=== PATIENT | male | born 1930 | race Caucasian/White ===

== ENCOUNTER 2017-01-20 13:17 | Emergency (ER) | payer MEDICARE, BC ==
[2017-01-20 14:49] VITALS: BP 108/55; PULSE 50; RESP 16
--- NOTE | 2017-01-20 15:23 | ED ---
Skin/Abscess/FB HPI - General Chief complaint: Skin/Abscess/Foreign Body Stated complaint: Rash/Legs Time Seen by Provider: 01/20/17 13:37 Source: patient, family Mode of arrival: ambulatory Limitations: no limitations - History of Present Illness Initial comments: 86 years old male presents with multiple skin rashes, he has about 30 different areas on his legs and to her abdomen AND both arms. He is concerned about 6 [place] lives [place] the [place] denies any direct contact with the dogs he denies any bed bugs. He has a multiple scattered rashes on his skin did just recently showed up over the last 2 days, that H. No fever no chills no records no SYMPTOMS OF SEPSIS - Related Data Previous Rx's Medication Instructions Recorded Amoxicillin 500 mg PO Q8H #30 capsule 01/20/17 Allergies Allergy/AdvReac Type Severity Reaction Status Date / Time No Known Allergies Allergy Verified 01/20/17 14:09 Review of Systems ROS Statement: Those systems with pertinent positive or pertinent negative responses have been documented in the HPI. ROS Other: All systems not noted in ROS Statement are negative. Past Medical History Past Medical History: Dementia, GERD/Reflux Additional Past Medical History / Comment(s): Hx of HTN, no longer on meds. History of Any Multi-Drug Resistant Organisms: C-DIFF Date of last positivie culture/infection: 2009? MDRO Source:: Stool Past Surgical History: Hernia Repair, Orthopedic Surgery Additional Past Surgical History / Comment(s): 03/12/16 LEFT HEMIARTHROPLASTY FROM FX. Partial tip of ring finger cut off, left knee arthoscopy, right shoulder surgery Past Anesthesia/Blood Transfusion Reactions: No Reported Reaction Past Psychological History: No Psychological Hx Reported Smoking Status: Former smoker Past Alcohol Use History: None Reported Past Drug Use History: None Reported - Past Family History Father Family Medical History: No Reported History Brother(s) Family Medical History: Cancer Additional Family Medical History / Comment(s): Prostate CA. Daughter(s) Family Medical History: Cancer Additional Family Medical History / Comment(s): Ovarian CA. General Exam - General Exam Comments Initial Comments: General: The patient is awake and alert, in no distress, and does not appear acutely ill. Skin: Skin is warm and dry , noticed some about 40 different spots on his legs , abdomen, both arms and some on the back, they vary from 2 mm to 7 mm in size raised, noticed some erythema is no tenderness. I did not notice any of the typical lymes disease lesions Eye: Pupils are equal, round and reactive to light, extra-ocular movements are intact; there is normal conjunctiva bilaterally. Ears, nose, mouth and throat: There are moist mucous membranes and no oral lesions. Neck: The neck is supple, there is no tenderness or JVD. Cardiovascular: There is a regular rate and rhythm. No murmur, rub or gallop is appreciated. Respiratory: To auscultation bilateral, no wheezing no rhonchi no distress respiratory [place] noticed Gastrointestinal: Soft, non-distended, non-tender abdomen without masses or organomegaly noted. There is no rebound or guarding present. Bowel sounds are unremarkable. Back: There is no tenderness to palpation in the midline. There is no obvious deformity. Musculoskeletal: Normal ROM, no tenderness, There is no pedal edema. There is no calf tenderness or swelling. No cords were appreciated. Neurological: CN II-XII intact, Cranial nerves III through XII are intact. There are no obvious motor or sensory deficits. Coordination appears grossly intact. Speech is normal. Psychiatric: Cooperative, appropriate mood & affect, normal judgment. Limitations: no limitations Course Vital Signs 01/20/17 01/20/17 13:28 14:48 Temperature 98.8 F Pulse Rate 58 L 50 L Respiratory 20 16 Rate Blood Pressure 113/65 108/55 O2 Sat by Pulse 98 95 Oximetry - Reevaluation(s) Reevaluation #1: 01/20/17 15:21 Discussion with the patient admitted to the [facility] she'll be treated with the amoxicillin 400 mg 3 times a day for next 10 days patient will follow-up with the family doctor for Lyme status so is positive he woke on amoxicillin for 10 days pain and if Lyme's test is negative then he will discontinue his amoxicillin Disposition Clinical Impression: Dermatitis, Acute Lyme disease Disposition: HOME SELF-CARE Prescriptions: Amoxicillin 500 mg PO Q8H #30 capsule Referrals: Francis Negrete Jr, [Primary Care Provider] - 1-2 days
[2017-01-20 15:30] VITALS: TEMP 97.9
[2017-01-22 13:04] LABS: Lyme IgG/IgM 0.1 Index; Lyme IgG/IgM Interp NEGATIVE (NEGATIVE)
== END 2017-01-20 15:29 | disposition home or self-care (01) ==
LOC: EC 13:17
DX: A69.20 Lyme disease, unspecified (principal); L30.9 Dermatitis, unspecified; Z87.891 Personal history of nicotine dependence
CPT/HCPCS: 36415; 86618; 99283

== ENCOUNTER 2018-01-25 12:11 | Emergency (ER) | payer MEDICARE, BC ==
[2018-01-25] MEDS ORDERED: DIPH,PERTUS(ACELL)TETVAC-LF 0.5 ML VIAL IM ONE (12:25)
[2018-01-25] MEDS ORDERED: ceFAZolin IN SWFI 2 GM/20 ML SYRINGE IVP ONE (12:25)
[2018-01-25 12:26] VITALS: RESP 18
--- NOTE | 2018-01-25 12:26 | ED ---
General Adult HPI <Mikaela Veraily - Last Filed: 01/25/18 14:02> - General Source: patient, EMS, RN notes reviewed Mode of arrival: EMS Limitations: no limitations <Jorje Vallecillo - Last Filed: 01/25/18 14:32> - General Chief complaint: Extremity Injury, Lower Stated complaint: toe injury Time Seen by Provider: 01/25/18 12:15 - History of Present Illness Initial comments: This is an 87-year-old male who presents emergency Department complaining of tripping over his toe. Patient was needing some help of EMS was called when they arrived they noticed that toe was lacerated and the joint from the proximal phalangeal was sticking out of the laceration completely disarticulated with the distal phalanges. Patient denies any foot pain ankle pain and knee pain. Patient denies any other symptoms at this time. Patient is somewhat demented but there is no family at this time. According to EMS they stated that the family was unaware of the toe injury when they arrived and were willing to keep him at home until they found that out. (Jorje Vallecillo) - Related Data Home Medications Medication Instructions Recorded Confirmed Aspirin EC [Ecotrin Low Dose] 81 mg PO DAILY 01/25/18 01/25/18 Previous Rx's Medication Instructions Recorded Cephalexin [Keflex] 500 mg PO Q6HR #28 cap 01/25/18 Ibuprofen [Motrin] 600 mg PO Q6HR PRN #20 tab 01/25/18 Allergies Allergy/AdvReac Type Severity Reaction Status Date / Time No Known Allergies Allergy Verified 01/25/18 13:07 Review of Systems ROS Other: All systems not noted in ROS Statement are negative. <Citlaly Vera - Last Filed: 01/25/18 14:02> ROS Other: All systems not noted in ROS Statement are negative. <Jorje Vallecillo - Last Filed: 01/25/18 14:32> ROS Statement: Those systems with pertinent positive or pertinent negative responses have been documented in the HPI. Past Medical History Past Medical History: Dementia, GERD/Reflux Additional Past Medical History / Comment(s): Hx of HTN, no longer on meds. History of Any Multi-Drug Resistant Organisms: C-DIFF Date of last positivie culture/infection: 2009 MDRO Source:: Stool Past Surgical History: Hernia Repair, Orthopedic Surgery Additional Past Surgical History / Comment(s): 03/12/16 LEFT HEMIARTHROPLASTY FROM FX. Partial tip of ring finger cut off, left knee arthoscopy, right shoulder surgery Past Anesthesia/Blood Transfusion Reactions: No Reported Reaction Past Psychological History: No Psychological Hx Reported Smoking Status: Former smoker Past Alcohol Use History: None Reported Past Drug Use History: None Reported - Past Family History Father Family Medical History: No Reported History Brother(s) Family Medical History: Cancer Additional Family Medical History / Comment(s): Prostate CA. Daughter(s) Family Medical History: Cancer Additional Family Medical History / Comment(s): Ovarian CA. <Jorje Vallecillo - Last Filed: 01/25/18 14:32> General Exam <Citlaly Vera - Last Filed: 01/25/18 14:02> Limitations: no limitations <Jorje Vallecillo - Last Filed: 01/25/18 14:32> - General Exam Comments Initial Comments: GENERAL Patient is well-developed and well-nourished. Patient is in mild distress. EYES Patient's pupils are equal and round. Extraocular motion is intact SKIN Unremarkable NEURO The patient is alert and oriented 3 PYSCH Patient has normal interpersonal interactions. MUSCULOSKELETAL Second toe is disarticulated at the PIP joint on the right foot and it is also open (Jorje Vallecillo) Vital Signs 01/25/18 01/25/18 12:14 14:15 Temperature 97.4 F L 97.8 F Pulse Rate 47 L 58 L Respiratory 18 18 Rate Blood Pressure 155/74 155/77 O2 Sat by Pulse 96 97 Oximetry Procedures - Laceration Laceration #1 Indication: laceration Site: foot (2nd toe) Size (cm): 2 Description: irregular Depth: simple, single layer Anesthetic Used: lidocaine 1% Anesthesia Technique: nerve block Amount (mls): 4 Pre-repair: wound explored, irrigated extensively Type of Sutures: nylon Size of Sutures: 5-0 Number of Sutures: 5 Technique: simple, interrupted Patient Tolerated Procedure: well, no complications - Orthopedic Fracture Reduction Fracture #1 Side: right Fracture Reduction Location: toe (2nd toe) Analgesia: digital block Technique: direct manipulation Post Reduction X-rays Demonstrate: anatomical reduction Post-Reduction Neuro Exam: intact Post-Reduction Vascular Exam: intact Patient Tolerated Procedure: well <Citlaly Vera - Last Filed: 01/25/18 14:02> Medical Decision Making - Radiology Data Radiology results: report reviewed, image reviewed <VallecilloJorje - Last Filed: 01/25/18 14:32> Disposition <JodyCitlaly - Last Filed: 01/25/18 14:02> Is patient prescribed a controlled substance at d/c from ED?: No Time of Disposition: 14:30 <Jorje Vallecillo - Last Filed: 01/25/18 14:32> Clinical Impression: Dislocation of second toe, right, open, Laceration of toe Disposition: HOME SELF-CARE Instructions: Laceration (ED) Prescriptions: Cephalexin [Keflex] 500 mg PO Q6HR #28 cap Ibuprofen [Motrin] 600 mg PO Q6HR PRN #20 tab PRN Reason: For pain Referrals: Francis Negrete Jr, DO [Primary Care Provider] - 1-2 days
--- NOTE | 2018-01-25 12:51 | XR ---
Right toes HISTORY: Trauma and pain 3 views of the right toes are submitted. There is a posterior dislocation present at the proximal interphalangeal joint of the second digit of the right foot with bayonet apposition. Proximal intra-articular fracture is present at the proximal phalanx of the first digit of the right foot. Minimal displacement. There is associated soft tissue swelling present. Bone mineralization is reduced. Transverse proximal fracture present at the proxima l phalanx of the third digit of the right foot. No displacement. Soft tissue calcifications present a t the first digit distal metatarsal level. Soft tissue swelling noted. IMPRESSION: Posttraumatic changes of digits 1 through 3 right foot.
[2018-01-25] MEDS ORDERED: LIDOCAINE 1% INJ 10MG/ML (20 ML MDV) SQ STA (12:58)
[2018-01-25 14:16] VITALS: BP 155/77; PULSE 58
[2018-01-25 14:21] VITALS: TEMP 97.8
== END 2018-01-25 14:43 | disposition home or self-care (01) ==
LOC: EC 12:11
DX: S92.511B Displaced fracture of proximal phalanx of right lesser toe(s), initial encounter for open fracture (principal); S91.114A Laceration without foreign body of right lesser toe(s) without damage to nail, initial encounter; Z23 Encounter for immunization; Z87.891 Personal history of nicotine dependence; Z98.890 Other specified postprocedural states; Z79.82 Long term (current) use of aspirin; W22.8XXA Striking against or struck by other objects, initial encounter; Y92.009 Unspecified place in unspecified non-institutional (private) residence as the place of occurrence of the external cause
CPT/HCPCS: 99284; 28515; 12001; 96374; 90471; 73660; 90715; J2001; J0690

== ENCOUNTER 2018-09-30 10:44 | Emergency (ER) | payer MEDICARE, BC ==
[2018-09-30 10:55] VITALS: RESP 18
[2018-09-30] MEDS ORDERED: SODIUM CHLORIDE 0.9% 1,000 ML IV ONE (10:59)
[2018-09-30] MEDS ORDERED: SODIUM CHLORIDE 0.9% 500 ML 500 ML IV ONE (10:59)
--- NOTE | 2018-09-30 11:25 | ED ---
Altered Mental Status HPI - General Chief Complaint: Altered Mental Status Stated Complaint: ALTERED MENTAL STATUS Time Seen by Provider: 09/30/18 10:49 Source: EMS, RN notes reviewed, old records reviewed Mode of arrival: EMS Limitations: altered mental status - History of Present Illness Initial Comments: This is a 80-year-old male the ER for evaluation. Patient is a poor strain secondary to medical's mental status. Patient is sent in for evaluation of altered mental status. Patient coming from [facility]. History obtained from patient's chart and EMS MD Complaint: altered mental status, confusion, weakness -: days(s) Severity: moderate Consistency of Symptoms: getting worse Context: history of similar presentation Associated Symptoms: denies other symptoms - Related Data Home Medications Medication Instructions Recorded Confirmed No Known Home Medications 09/30/18 09/30/18 Allergies Allergy/AdvReac Type Severity Reaction Status Date / Time No Known Allergies Allergy Verified 09/30/18 11:43 Review of Systems ROS Statement: Those systems with pertinent positive or pertinent negative responses have been documented in the HPI. ROS Other: All systems not noted in ROS Statement are negative. Past Medical History Past Medical History: Dementia, GERD/Reflux, Hypertension Additional Past Medical History / Comment(s): Hx of HTN, no longer on meds. History of Any Multi-Drug Resistant Organisms: C-DIFF Date of last positivie culture/infection: 2009 MDRO Source:: Stool Past Surgical History: Hernia Repair, Orthopedic Surgery Additional Past Surgical History / Comment(s): 03/12/16 LEFT HEMIARTHROPLASTY FROM FX. Partial tip of ring finger cut off, left knee arthoscopy, right shoulder surgery Past Anesthesia/Blood Transfusion Reactions: No Reported Reaction Past Psychological History: No Psychological Hx Reported Smoking Status: Former smoker Past Alcohol Use History: None Reported Past Drug Use History: None Reported - Past Family History Father Family Medical History: No Reported History Brother(s) Family Medical History: Cancer Additional Family Medical History / Comment(s): Prostate CA. Daughter(s) Family Medical History: Cancer Additional Family Medical History / Comment(s): Ovarian CA. General Exam Limitations: altered mental status General appearance: alert, in no apparent distress Head exam: Present: atraumatic, normocephalic, normal inspection Eye exam: Present: normal appearance, PERRL, EOMI. Absent: scleral icterus, conjunctival injection, periorbital swelling ENT exam: Present: normal exam, mucous membranes moist Neck exam: Present: normal inspection. Absent: tenderness, meningismus, lymphadenopathy Respiratory exam: Present: normal lung sounds bilaterally. Absent: respiratory distress, wheezes, rales, rhonchi, stridor Cardiovascular Exam: Present: regular rate, normal rhythm, normal heart sounds. Absent: systolic murmur, diastolic murmur, rubs, gallop, clicks GI/Abdominal exam: Present: soft, normal bowel sounds. Absent: distended, tenderness, guarding, rebound, rigid Extremities exam: Present: normal inspection, full ROM, normal capillary refill. Absent: tenderness, pedal edema, joint swelling, calf tenderness Back exam: Present: normal inspection Neurological exam: Present: alert, oriented X3, CN II-XII intact Psychiatric exam: Present: normal affect, normal mood Skin exam: Present: warm, dry, intact, normal color. Absent: rash Course Vital Signs 09/30/18 09/30/18 10:45 12:34 Temperature 98.4 F Pulse Rate 58 L 57 L Respiratory 18 18 Rate Blood Pressure 138/83 152/86 O2 Sat by Pulse 95 96 Oximetry - Reevaluation(s) Reevaluation #1: 09/30/18 12:39 Medical records reviewed Reevaluation #2: 09/30/18 12:39 Family at bedside Medical Decision Making - Medical Decision Making 88 male the ER for evaluation. Patient has normal workup for altered mental sta tus here in the ER, did speak with Dr. Romo will see patient in the office next week - Lab Data Result diagrams: 09/30/18 12:11 09/30/18 12:11 Lab Results 09/30/18 09/30/18 09/30/18 Range/Units 11:36 12:11 12:11 WBC 8.0 (3.8-10.6) k/uL RBC 4.58 (4.30-5.90) m/uL Hgb 12.2 L (13.0-17.5) gm/dL Hct 40.3 (39.0-53.0) % MCV 88.1 (80.0-100.0) fL MCH 26.7 (25.0-35.0) pg MCHC 30.3 L (31.0-37.0) g/dL RDW 13.8 (11.5-15.5) % Plt Count 420 (150-450) k/uL Neutrophils % 72 % Lymphocytes % 18 % Monocytes % 5 % Eosinophils % 1 % Basophils % 1 % Neutrophils # 5.7 (1.3-7.7) k/uL Lymphocytes # 1.5 (1.0-4.8) k/uL Monocytes # 0.4 (0-1.0) k/uL Eosinophils # 0.1 (0-0.7) k/uL Basophils # 0.0 (0-0.2) k/uL Hypochromasia Slight PT 9.9 (9.0-12.0) sec INR 0.9 (<1.2) APTT 25.8 (22.0-30.0) sec Sodium (137-145) mmol/L Potassium (3.5-5.1) mmol/L Chloride (98-107) mmol/L Carbon Dioxide (22-30) mmol/L Anion Gap mmol/L BUN (9-20) mg/dL Creatinine (0.66-1.25) mg/dL Est GFR (CKD-EPI)AfAm (>60 ml/min/1.73 sqM) Est GFR (CKD-EPI)NonAf (>60 ml/min/1.73 sqM) Glucose (74-99) mg/dL Calcium (8.4-10.2) mg/dL Phosphorus (2.5-4.5) mg/dL Magnesium (1.6-2.3) mg/dL Total Bilirubin (0.2-1.3) mg/dL AST (17-59) U/L ALT (21-72) U/L Alkaline Phosphatase (38-126) U/L Ammonia (<30) umol/L Troponin I (0.000-0.034) ng/mL Total Protein (6.3-8.2) g/dL Albumin (3.5-5.0) g/dL Urine Color Yellow Urine Appearance Cloudy (Clear) Urine pH 7.5 (5.0-8.0) Ur Specific Gilbert 1.014 (1.001-1.035) Urine Protein Negative (Negative) Urine Glucose (UA) Negative (Negative) Urine Ketones Negative (Negative) Urine Blood Negative (Negative) Urine Nitrite Negative (Negative) Urine Bilirubin Negative (Negative) Urine Urobilinogen <2.0 (<2.0) mg/dL Ur Leukocyte Esterase Negative (Negative) Urine RBC 3 (0-5) /hpf Urine WBC 3 (0-5) /hpf Ur Squamous Epith Cells <1 (0-4) /hpf Urine Bacteria Rare H (None) /hpf Urine Mucus Occasional H (None) /hpf Urine Opiates Screen Not Detected (NotDetected) Ur Oxycodone Screen Not Detected (NotDetected) Urine Methadone Screen Not Detected (NotDetected) Ur Propoxyphene Screen Not Detected (NotDetected) Ur Barbiturates Screen Not Detected (NotDetected) U Tricyclic Antidepress Not Detected (NotDetected) Ur Phencyclidine Scrn Not Detected (NotDetected) Ur Amphetamines Screen Not Detected (NotDetected) U Methamphetamines Scrn Not Detected (NotDetected) U Benzodiazepines Scrn Not Detected (NotDetected) Urine Cocaine Screen Not Detected (NotDetected) U Marijuana (THC) Screen Not Detected (NotDetected) 09/30/18 09/30/18 09/30/18 Range/Units 12:11 12:11 12:11 WBC (3.8-10.6) k/uL RBC (4.30-5.90) m/uL Hgb (13.0-17.5) gm/dL Hct (39.0-53.0) % MCV (80.0-100.0) fL MCH (25.0-35.0) pg MCHC (31.0-37.0) g/dL RDW (11.5-15.5) % Plt Count (150-450) k/uL Neutrophils % % Lymphocytes % % Monocytes % % Eosinophils % % Basophils % % Neutrophils # (1.3-7.7) k/uL Lymphocytes # (1.0-4.8) k/uL Monocytes # (0-1.0) k/uL Eosinophils # (0-0.7) k/uL Basophils # (0-0.2) k/uL Hypochromasia PT (9.0-12.0) sec INR (<1.2) APTT (22.0-30.0) sec Sodium 138 (137-145) mmol/L Potassium 4.9 (3.5-5.1) mmol/L Chloride 100 (98-107) mmol/L Carbon Dioxide 28 (22-30) mmol/L Anion Gap 10 mmol/L BUN 18 (9-20) mg/dL Creatinine 0.82 (0.66-1.25) mg/dL Est GFR (CKD-EPI)AfAm >90 (>60 ml/min/1.73 sqM) Est GFR (CKD-EPI)NonAf 79 (>60 ml/min/1.73 sqM) Glucose 109 H (74-99) mg/dL Calcium 10.0 (8.4-10.2) mg/dL Phosphorus 3.5 (2.5-4.5) mg/dL Magnesium 2.1 (1.6-2.3) mg/dL Total Bilirubin 0.9 (0.2-1.3) mg/dL AST 34 (17-59) U/L ALT 23 (21-72) U/L Alkaline Phosphatase 95 (38-126) U/L Ammonia <9 (<30) umol/L Troponin I <0.012 (0.000-0.034) ng/mL Total Protein 7.2 (6.3-8.2) g/dL Albumin 3.9 (3.5-5.0) g/dL Urine Color Urine Appearance (Clear) Urine pH (5.0-8.0) Ur Specific Gilbert (1.001-1.035) Urine Protein (Negative) Urine Glucose (UA) (Negative) Urine Ketones (Negative) Urine Blood (Negative) Urine Nitrite (Negative) Urine Bilirubin (Negative) Urine Urobilinogen (<2.0) mg/dL Ur Leukocyte Esterase (Negative) Urine RBC (0-5) /hpf Urine WBC (0-5) /hpf Ur Squamous Epith Cells (0-4) /hpf Urine Bacteria (None) /hpf Urine Mucus (None) /hpf Urine Opiates Screen (NotDetected) Ur Oxycodone Screen (NotDetected) Urine Methadone Screen (NotDetected) Ur Propoxyphene Screen (NotDetected) Ur Barbiturates Screen (NotDetected) U Tricyclic Antidepress (NotDetected) Ur Phencyclidine Scrn (NotDetected) Ur Amphetamines Screen (NotDetected) U Methamphetamines Scrn (NotDetected) U Benzodiazepines Scrn (NotDetected) Urine Cocaine Screen (NotDetected) U Marijuana (THC) Screen (NotDetected) - EKG Data -: EKG Interpreted by Me (EKG shows sinus bradycardia rate of 56, MO 180, QRS 70, QTc 460) - Radiology Data Radiology results: report reviewed (CT brain negative for acute disease chest x- rays negative for acute disease), image reviewed Disposition Clinical Impression: Dementia, Altered mental status Disposition: HOME SELF-CARE Condition: Fair Instructions (If sedation given, give patient instructions): Altered Mental Status (ED) Is patient prescribed a controlled substance at d/c from ED?: No Referrals: Francis Negrete Jr, DO [Primary Care Provider] - 1-2 days
[2018-09-30 12:03] LABS: Appearance,Urine Cloudy (Clear); Bacteria,Urine Rare /hpf; Bilirubin,Urine Negative (Negative); Blood,Urine Negative (Negative); Color,Urine Yellow; Glucose,Urine (UA) Negative (Negative); Ketones,Urine Negative (Negative); Leukocyte Esterase,Urine Negative (Negative); Mucus,Urine Occasional /hpf; Nitrite,Urine Negative (Negative); PH, Urine 7.5 (5.0-8.0); Protein,Urine Negative (Negative); RBC,Urine 3 /hpf (0-5); Specific Gravity,Urine 1.014 (1.001-1.035); Squamous Epithelial Cell,Urine <1 /hpf (0-4); Urobilinogen,Urine <2.0 mg/dL (<2.0); WBC,Urine 3 /hpf (0-5)
[2018-09-30 12:07] LABS: Amphetamine Screen,Urine Not Detected (NotDetected); Barbiturate Screen,Urine Not Detected (NotDetected); Benzodiazepines Screen,Urine Not Detected (NotDetected); Cocaine Screen,Urine Not Detected (NotDetected); Methadone Screen, Urine Not Detected (NotDetected); Opiate Screen,Urine Not Detected (NotDetected); Oxycodone Screen, Urine Not Detected (NotDetected); Phencyclidine Screen,Urine Not Detected (NotDetected); Tricyclic Antidepressant,Urine Not Detected (NotDetected); Urn Cannabinoid Scrn Not Detected (NotDetected)
--- NOTE | 2018-09-30 12:13 | CT ---
EXAMINATION TYPE: CT brain wo con DATE OF EXAM: 09/30/2018 COMPARISON: 04/05/2016 HISTORY: Altered mental status CT DLP: 1170.4 mGycm Automated exposure control for dose reduction was used. FINDINGS: Moderate generalized degenerative change noted. Stable low-attenuation left frontal lobe compatible w ith previous ischemia. There is a central component which is greater than the sulci overlying the con vexities. Findings are stable may represent a component of normal pressure hydrocephalus. No acute hemorrhage. Calvarium intact. Intracranial atherosclerotic changes. Bony density along the inner table of the sup erior right parietal lobe most likely related to a osteoma or small meningioma. IMPRESSION: 1. DEGENERATIVE CHANGE OF THE GREATER CENTRAL COMPONENT. THIS RAISES THE POSSIBILITY OF A COMPONENT O F NORMAL PRESSURE HYDROCEPHALUS. FINDINGS ARE SIMILAR TO THE PRIOR EXAM. 2. NO ACUTE HEMORRHAGE. REMOTE ISCHEMIC CHANGE INVOLVING THE LEFT FRONTAL LOBE. IF THERE IS CONCERN F OR ACUTE ISCHEMIA CORRELATE WITH MRI CLINICALLY WARRANTED 3. SUSPECT A SMALL MENINGIOMA OR POSSIBLY WITH A OSTEOMA ALONG THE SUPERIOR RIGHT PARIETAL CONVEXITY JUST PARAMEDIAN TO THE MIDLINE WHICH IS PARTIALLY CALCIFIED. NO SIGNIFICANT MASS EFFECT UPON THE JOHAN CENT CORTEX..
--- NOTE | 2018-09-30 12:17 | XR ---
EXAMINATION TYPE: XR chest 2V DATE OF EXAM: 09/30/2018 COMPARISON: 04/05/2016 HISTORY: Altered mental status TECHNIQUE: Frontal and lateral views of the chest are obtained. FINDINGS: There is no focal air space opacity, pleural effusion, or pneumothorax seen. Right infrah ilar prominence is now noted. Right paratracheal density is also seen. The cardiac silhouette size is within normal limits. Surgical clips are seen at the gastroesophageal junction. Right clavicular kathie te is present from prior fracture fixation. There is diffuse osseous demineralization and high riding humeral heads indicative of underlying chronic rotator cuff tear. Old healed left rib fractures are noted. IMPRESSION: 1. No focal consolidation to suggest pneumonia. 2. Right infrahilar prominence may relate to low lung volumes and vascular crowding. Right paratrache al density is present in pulmonary nodules not excluded. Nonemergent CT could assess this finding.
[2018-09-30 12:45] LABS: Basophils % (A) 1 %; Eosinophils # (A) 0.1 k/uL (0-0.7); Eosinophils % (A) 1 %; HCT 40.3 % (39.0-53.0); HGB 12.2 gm/dL (13.0-17.5); Hypochromasia Slight; Lymphocytes # (A) 1.5 k/uL (1.0-4.8); Lymphocytes % (A) 18 %; MCH 26.7 pg (25.0-35.0); MCHC 30.3 g/dL (31.0-37.0); MCV 88.1 fL (80.0-100.0); Mean Platelet Volume 7.4; Monocytes # (A) 0.4 k/uL (0-1.0); Monocytes % (A) 5 %; Neutrophils # (A) 5.7 k/uL (1.3-7.7); Neutrophils % (A) 72 %; Platelet Count 420 k/uL (150-450); RBC 4.58 m/uL (4.30-5.90); RDW 13.8 % (11.5-15.5)
[2018-09-30 13:03] LABS: INR 0.9 (<1.2); Partial Thromboplastin Time 25.8 sec (22.0-30.0); Prothrombin Time 9.9 sec (9.0-12.0)
[2018-09-30 13:04] LABS: ALT 23 U/L (21-72); AST 34 U/L (17-59); Albumin 3.9 g/dL (3.5-5.0); Alkaline Phosphatase 95 U/L (38-126); Anion Gap 10 mmol/L; Blood Urea Nitrogen 18 mg/dL (9-20); Carbon Dioxide 28 mmol/L (22-30); Chloride 100 mmol/L (98-107); Glucose 109 mg/dL (74-99); Magnesium 2.1 mg/dL (1.6-2.3); Phosphorus 3.5 mg/dL (2.5-4.5); Potassium 4.9 mmol/L (3.5-5.1); Sodium 138 mmol/L (137-145); Total Bilirubin 0.9 mg/dL (0.2-1.3); Total Protein 7.2 g/dL (6.3-8.2)
[2018-09-30 14:32] VITALS: BP 127/102; PULSE 81; TEMP 97.8
== END 2018-09-30 14:32 | disposition home or self-care (01) ==
LOC: EC 10:44
DX: F03.90 Unspecified dementia, unspecified severity, without behavioral disturbance, psychotic disturbance, mood disturbance, and anxiety (principal); R00.1 Bradycardia, unspecified; R53.1 Weakness; Z87.891 Personal history of nicotine dependence
CPT/HCPCS: 36415; 70450; 71046; 80053; 80306; 81001; 82140; 83735; 84100; 84484; 85025; 85610; 85730; 93005; 96360; 96361; 99285